=== PATIENT | female | born 1965 | race Caucasian/White ===

== ENCOUNTER 2017-08-19 14:31 | Outpatient (CLI) | payer OTHER ==
[2013-03-12 15:08] VITALS: BP 118/62
--- NOTE | 2017-08-19 15:33 | Diagnostic Imaging Report ---
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 [address] Report Submission Date: Aug 19, 2017 2:53:40 PM CDT Patient Study Name: [place] Date: Aug 19, 2017 2:40:32 PM CDT Modality Type: DX Gender: F Description: CHEST : 67 Institution: [facility] Physician: JIN MADRIGAL ([place]) - OP Examination: PA and lateral chest. History: Evaluate lung buckley. COUGH; SOA X 1 1/2 WEEKS (Hx) Findings: PA lateral chest demonstrate a normal cardiac and mediastinal silhouette. No focal infiltrate. No blunting of the costophrenic margins. Osseous structures are appropriate for age. Impression: No acute pulmonary process. Electronically signed on Aug 19, 2017 2:53:40 PM CDT by: Bryon CALL
== END 2017-08-19 14:32 ==
LOC: RT 14:31
PROVIDERS: ATTEND Nurse Practitioner Family
DX: R06.02 Shortness of breath (principal); R05 Cough; R00.2 Palpitations
CPT/HCPCS: 71046

== ENCOUNTER 2018-07-23 07:49 | Emergency (ER) | payer OTHER ==
--- NOTE | 2018-07-23 08:03 | ED Physician Documentation ---
Headache - HISTORIAN Historian: patient - HPI Stated Complaint: headache Chief Complaint: Headache Additional Information: Patient presents to ED with complaints of pounding (12/10 rating) headache, radiating to her right shoulder with chest pressure (3/10 rating) and thick tongue feeling. Patient states her symptoms started this morning. She admits to frequent headache but this one is different. Patient states her chest p ressure is worse with exertion and deep breathing. Pain is reproducible with chest wall compression. Patient has a 25 pack year smoking history. Onset: hours (4) Timing: gradual Exposure To: none Severity: moderate Quality: pounding Associated Symptoms: neck pain. denies: fever, nausea, vomiting Preceding Symptoms: denies: visual disturbance Exacerbated By: movement. denies: light, noise - ROS NEURO/PSYCH: denies: confusion EYES/ENT: denies: difficulty swallowing CVS/RESP: chest pain. denies: shortness of breath, cough GI/: denies: abdominal pain MS/SKIN/LYMPH: denies: muscle aches - PAST HX Medical History: no pertinent history Surgical History: other (hysterectomy) Allergies/Adverse Reactions: Allergies Allergy/AdvReac Type Severity Reaction Status Date / Time No Known Allergies Allergy Verified 07/23/18 08:03 Home Medications: Ambulatory Orders Medication Instructions Recorded Baclofen 10 mg PO BID #30 tablet 07/23/18 Citalopram Hydrobromide [Celexa] 40 mg PO DAILY 07/23/18 Ondansetron HCl Rapdis [Zofran Odt] 4 mg PO BID PRN #30 tab 07/23/18 - SOCIAL HX Smoking History: cigarettes, greater than 1 pack/day Alcohol Use: none Drug Use: none - Family HX Family History: none - VITAL SIGNS Vital Signs: Vital Signs Temp Pulse Resp BP Pulse Ox 97.6 F 79 19 139/77 99 07/23/18 07:50 07/23/18 07:50 07/23/18 07:50 07/23/18 07:50 07/23/18 07:50 - REVIEWED ASSESSMENTS Nursing Assessment Reviewed: Yes Vitals Reviewed: Yes Progress - Progress Progress: 0920 Patient states headache is improved to 6/10. chest pressure has resolved. Re-examination reveals worsening headache with right upper trapezius compression. - EKG/XRAY/CT EKG: NSR Comments: 79 bpm ED Results Lab/Radiology - Lab Results Lab Results: Lab Results 07/23/18 07/23/18 07/23/18 08:00 08:00 08:00 WBC RBC Hgb Hct MCV MCH MCHC RDW Plt Count Neut % (Auto) Lymph % (Auto) [place] % (Auto) Eos % (Auto) Baso % (Auto) Neut # (Auto) Lymph # (Auto) [place] # (Auto) Eos # (Auto) Baso # (Auto) PT 9.9 Seconds Seconds (8.8-11.9) INR 0.95 (0.80-1.10) Sodium 138 mmol/L mmol/L (137-145) Potassium 4.0 mmol/L mmol/L (3.5-5.1) Chloride 106 mmol/L mmol/L (98-107) Carbon Dioxide 27 mmol/L mmol/L (22-30) BUN 16 mg/dL mg/dL (7-17) Creatinine 0.78 mg/dL mg/dL (0.52-1.04) Estimated Creat Clear 156 Est GFR ( Amer) > 60 (60 - ) Est GFR (Non-Af Amer) > 60 (60 - ) Glucose 92 mg/dL mg/dL (74-106) Calcium 9.0 mg/dL mg/dL (8.4-10.2) Total Bilirubin 0.7 mg/dL mg/dL (0.2-1.3) AST 31 U/L U/L (15-46) ALT 26 U/L U/L (0-35) Alkaline Phosphatase 100 U/L U/L (38-126) Troponin I < 0.012 ng/mL L ng/mL (0.012-0.034) Total Protein 7.4 g/dL g/dL (6.3-8.2) Albumin 4.1 g/dL g/dL (3.5-5.0) 07/23/18 08:00 WBC 9.00 K/ul K/ul (4.00-12.00) RBC 4.24 M/ul M/ul (3.90-5.20) Hgb 13.8 g/dL g/dL (11.5-16.0) Hct 40.1 % % (34.5-46.5) MCV 95.0 fl fl (80.0-100.0) MCH 32.5 pg pg (28.0-34.0) MCHC 34.4 g/dL g/dL (30.0-36.0) RDW 12.6 % % (11.3-14.3) Plt Count 172 K/mm3 K/mm3 (130-400) Neut % (Auto) 55.6 % % (39.0-79.0) Lymph % (Auto) 35.2 % % (16.0-50.0) [place] % (Auto) 6.9 % % (0.0-11.0) Eos % (Auto) 1.7 % % (0.0-6.8) Baso % (Auto) 0.6 % % (0.0-1.5) Neut # (Auto) 5.0 # k/uL # k/uL (1.4-7.7) Lymph # (Auto) 3.2 # k/uL # k/uL (0.6-4.0) [place] # (Auto) 0.6 # k/uL # k/uL (0.0-0.9) Eos # (Auto) 0.2 # k/uL # k/uL (0.0-0.6) Baso # (Auto) 0.1 # k/uL # k/uL (0.0-0.5) PT INR Sodium Potassium Chloride Carbon Dioxide BUN Creatinine Estimated Creat Clear Est GFR ( Amer) Est GFR (Non-Af Amer) Glucose Calcium Total Bilirubin AST ALT Alkaline Phosphatase Troponin I Total Protein Albumin - Radiology Radiology Impressions: Report Submission Date: July 23, 2018 8:15:40 AM CDT Patient Study Name: [place] Date: July 23, 2018 8:00:00 AM CDT Modality Type: CT\SR Gender: F Description: HEAD : 67 Institution: [facility] Physician: KAILEE ALVAREZ HEAD CT WITHOUT CONTRAST HISTORY: Worst headache of life COMPARISON: None TECHNIQUE: Axial images were obtained from the skullbase to the vertex without IV contrast. FINDING: The ventricular system is normal in size and configuration. There is normal parenchymal attenuation. There is no positive mass effect or intra/extra-axial hemorrhage. Visualized paranasal sinuses demonstrate mild mucosal thickening of the left maxillary sinus. Otherwise, paranasal sinuses and mastoid air cells are clear. The calvarium is intact. IMPRESSION: NO INTRACRANIAL ABNORMALITY. Mild mucosal thickening of the left maxillary sinus. Electronically signed on July 23, 2018 8:15:40 AM CDT by: Mae York - Orders Orders: ED Orders Category Date Time Status Place IV Lock 1T Care 07/23/18 07:[address] BRAIN W/O CONTRAST Stat Exams 07/23/18 Taken CBC/PLATELET/DIFF Routine Lab 07/23/18 08:00 Completed CMP Routine Lab 07/23/18 08:00 Completed PT-INR Routine Lab 07/23/18 08:00 Completed TROPONIN I Stat Lab 07/23/18 08:00 Completed 0.9 % Sodium Chloride [Normal Saline] 1,000 ml Med 07/23/18 08:32 Active IV Q1H Baclofen [Lioresal] Med 07/23/18 09:17 Once 10 mg PO NOW ONE Ketorolac Tromethamine [Toradol] Med 07/23/18 08:32 Discontinued 30 mg IV NOW ONE Ondansetron HCl/Pf [Zofran] Med 07/23/18 08:32 Discontinued 4 mg IVP NOW ONE methylPREDNISolone SOD SUCC [SOLU-Medrol] Med 07/23/18 08:32 Discontinued 125 mg IVP NOW ONE Headache Physical Exam - EXAM General Appearance: no acute distress, alert EENT: PERRL Neck: supple Respiratory: no resp distress, breath sounds normal, other (chest pain reproducible with chest wall compression) Abdomen: non-tender, nml bowel sounds, no distention Skin: color nml Extremitites: non-tender, no edema - NEURO/PSYCH Higher Functions: alert, oriented x3, nml speech, mood/affect nml Cranial: no evidence of acute CVA Cerebellar: nml as tested Sensorimotor: motor nml, sensation nml Discharge Clincal Impression: Tension headache Prescriptions: Baclofen 10 mg PO BID #30 tablet Ondansetron HCl Rapdis [Zofran Odt] 4 mg PO BID PRN #30 tab PRN Reason: headache Referrals: Crystal Rodriguez, CIRC[employer] K[employer]ITTER [Primary Care Provider] - 2 Days Additional Instructions: 1. Tylenol and/or Ibuprofen as needed for pain 2. Take Baclofen and Zofran together along with tylenol or ibuprofen for your headache 3. Baclofen can cause drowsiness so do not drive while taking this medication 4. Drink plenty of fluids to maintain proper hydration. Avoid caffeine and alcohol 5. Follow up with PCP within 1 week 6. Return to ER for new or worsening symptoms Condition: Stable Disposition: 01 HOME, SELF-CARE Decision to Admit: NO Date of Decison to Admit: 07/23/18 Decision Time: 09:27
[2018-07-23 08:05] LABS: BASOPHILS % 0.6 % (0.0-1.5); EOSINOPHILS % 1.7 % (0.0-6.8); MEAN CORPUSCULAR HEMOGLOBIN 32.5 pg (28.0-34.0); MONOCYTES % 6.9 % (0.0-11.0)
[2018-07-23] MEDS ORDERED: KETOROLAC TROMETHAMINE 30 MG/1ML VIAL IV ONE (08:32)
[2018-07-23] MEDS ORDERED: methylPREDNISolone SOD SUCC 125 MG/2 ML VIAL IVP ONE (08:32)
[2018-07-23] MEDS ORDERED: 0.9 % SODIUM CHLORIDE 1,000 ML IV ONE (08:32)
[2018-07-23] MEDS ORDERED: ONDANSETRON HCL/PF 4 MG/ 2ML VIAL IVP ONE (08:32)
[2018-07-23 08:43] LABS: eGFR (Non-African) > 60
[2018-07-23] MEDS ORDERED: BACLOFEN 10 MG TABLET PO ONE (09:17)
[2018-07-23 10:03] VITALS: BP 124/66
--- NOTE | 2018-07-23 18:21 | Diagnostic Imaging Report ---
KAILEE ALVAREZ [facility] [address] [facility] [address] [address] Report Submission Date: July 23, 2018 8:15:40 AM CDT Patient Study Name: [place]SHINE [place] Date: July 23, 2018 8:00:00 AM CDT Modality Type: CT\SR Gender: F Description: HEAD : 67 Institution: [facility] Physician: KAILEE ALVAREZ HEAD CT WITHOUT CONTRAST HISTORY: Worst headache of life COMPARISON: None TECHNIQUE: Axial images were obtained from the skullbase to the vertex without IV contrast. FINDING: The ventricular system is normal in size and configuration. There is normal parenchymal attenuation. There is no positive mass effect or intra/extra-axial hemorrhage. Visualized paranasal sinuses demonstrate mild mucosal thickening of the left maxillary sinus. Otherwise, paranasal sinuses and mastoid air cells are clear. The calvarium is intact. IMPRESSION: NO INTRACRANIAL ABNORMALITY. Mild mucosal thickening of the left maxillary sinus. Electronically signed on July 23, 2018 8:15:40 AM CDT by: Mae CALL
== END 2018-07-23 09:55 | disposition home or self-care (01) ==
LOC: ED 07:49
DX: G44.209 Tension-type headache, unspecified, not intractable (principal); Z72.0 Tobacco use
CPT/HCPCS: 36415; 70450; 80053; 84484; 85025; 85610; 93005; 96374; 96375; 99283; 99284; J1885; J2405; J2930; J7030; S1016